=== PATIENT | male | born 1995 | race Caucasian/White ===

== ENCOUNTER 2022-02-23 19:54 | Emergency (ER) | payer SELFPAY | END 2022-02-23 20:58 | disposition left against medical advice (07) | LOC: HO.ED 20:54 | PROVIDERS: Emergency Provider Emergency Medicine | DX: S61.219A Laceration without foreign body of unspecified finger without damage to nail, initial encounter (principal); X58.XXXA Exposure to other specified factors, initial encounter; Y93.9 Activity, unspecified; Y92.9 Unspecified place or not applicable; Y99.9 Unspecified external cause status ==

== ENCOUNTER 2023-10-21 19:19 | Inpatient (IN) | payer MEDICAID, SELFPAY ==
--- NOTE | 2023-10-21 20:07 | ED.PSYCH ---
HPI - Psych General Stated Complaint: crisis eval Time Seen by Provider: 10/21/23 19:57 Source: patient Mode of arrival: ambulatory Limitations: no limitations History of Present Illness HPI Narrative: Patient comes to the emergency room brought by ?one of his many mom's . When I asked the patient what is the reason that he came to the emergency room, patient is willing to answer question, but he answers something completely different, speaking with pressured speech and in tangents. Seems that patient is not on any medication. Patient states that he has had many medications in the past but nothing work so he has not on any meds. Unclear for how long. Related Data Allergies Allergy/AdvReac Type Severity Reaction Status Date / Time Unable to Assess Allergy Verified 10/21/23 20:05 Review of Systems Review of Systems: Yes Unobtainable due to mental condition (Speaking in tangents, pressured speech, not answering questions appropriate) [facility] Past Medical History Medical History (Updated 10/21/23 @ 20:12 by Davida Hubbard MD) Bipolar disorder Physical Exam Const: Other: Appearance: Alert. No acute distress. Eyes: Pupils equal, round and reactive to light. ENT: Pharynx normal. Neck: Normal inspection. Neck supple. No lymph nodes noted. No crepitus CVS: Normal heart rate and rhythm. Pulses normal. Normal S1 and S2 Respiratory: No respiratory distress. Breath sounds normal. No Wheezing. No rales Abdomen: Soft and nontender. No rigidity. No distention. Skin: Skin warm and dry. Normal skin color. Normal skin turgor. Extremities: No lower extremity edema. No Lacerations. No Rash Neuro: moving all extremities. No slurred speech. CN 2 through 12 grossly intact Psych: calm, cooperative, hyperverbal, speaking in tangents Course Course Course Narrative: -all of patient's labs pending -care team consult pending -patient is manic, hyperverbal, however patient is redirectable. Patient offered p.o. Benadryl, Haldol and lorazepam. At this time, IM medications not indicated as he is, cooperative. Critical Care Time Critical Care Time Critical Care Time: Yes Total Critical Care Time: 30 Attestation: I have personally provided critical care time. Time includes review of lab data, radiology results, discussion with consultants, and monitoring for potential decompensation. Intervention performed as documented. Discharge Plan Discharge Clinical Impression: Bipolar disorder, manic Patient Disposition: Still a Patient
[2023-10-21 20:11] VITALS: BP 146/84; PULSE 83; RESP 16; TEMP 36.6; O2SAT 98; BMI 31.5
[2023-10-21] MEDS: diphenhydrAMINE HCL 25 MG CAPSULE 50 MG PO (20:41)
[2023-10-21 20:44] LABS: MANUAL DIFF FLAG NO
[2023-10-21 20:48] LABS: Basophils Percent Auto 0.2 % (0-2); Eosinophils Percent Auto 0.2 % (0-4); Hematocrit 45.1 % (42.0-52.0); Hemoglobin 15.9 g/dl (14.0-18.0); Imm Gran Abs Auto 0.01 X10*3/uL (0.00-0.03); Imm Gran Pct Auto 0.2 % (0.0-0.4); Lymphocytes Absolute Auto 1.2 X10*3/uL (1.2-4.9); Lymphocytes Percent Auto 25.6 % (20-40); Mean Corpuscular HGB Conc 35.3 g/dl (31.0-36.0); Mean Corpuscular Hemoglobin 31.2 pg (27.0-33.0); Mean Corpuscular Volume 88.6 fL (80.0-98.0); Mean Platelet Volume 10.1 fL (9.4-12.4); Monocytes Absolute Auto 0.7 X10*3/uL (0.1-1.2); Monocytes Percent Auto 14.7 % (2-11); Neutrophils Absolute Auto 2.9 x10*3/uL (2.0-8.3); Neutrophils Percent Auto 59.1 % (45-73); Platelet Count 208 X10*3/uL (160-400); Red Blood Count 5.09 X10*6/uL (4.60-5.80); Red Cell Distribution Width 12.1 % (11.0-16.0); White Blood Count 4.8 X10*3/uL (4.8-10.8)
--- NOTE | 2023-10-21 21:26 | PC.NURSE ---
mother called in, [facility] in [place]. new number [phone]
[2023-10-21 21:36] LABS: Alanine Aminotransferase 22 U/L (0-40); Albumin Level 5.1 g/dL (3.5-5.0); Alkaline Phosphatase 76 U/L (39-117); Anion Gap 17 (12-20); Aspartate Amino Transferase 21 U/L (5-37); Bilirubin Direct 0.3 mg/dL (0.0-0.5); Bilirubin Total 0.8 mg/dL (0.0-1.0); Blood Urea Nitrogen 10 mg/dL (9-16); Calcium 9.9 mg/dL (8.4-10.2); Carbon Dioxide 24 mmol/L (22-29); Chloride 100 mmol/L (96-108); Creatinine Clr Calc Pharmacy 174.4; Estimated Glomerular Filt Rate > 60; Ethanol < 10 mg/dL; Glucose Random 121 mg/dL (60-115); Potassium 4.4 mmol/L (3.3-5.1); Sodium 137 mmol/L (135-145); Total Protein 8.3 g/dL (6.5-8.0)
--- NOTE | 2023-10-21 21:46 | MHC.CARE ---
Mother called to speak to CARE team while pt was in . She reports pt took 10 packs of emergen-C yesterday in what she believes was a suicide attempt. She shared pt has an aunt that completed suicide, cousin who overdosed, maternal gma who suffers from schizophrenia and she (mom) has depression. Pt is currently staying with her friend as he recently broke up with girlfriend. Mother is in [place]. She asked to be called at [phone] marquita assessment underway
--- OUTSIDE RECORDS SUMMARY | 2023-10-21 21:54 | XMS_ITS | Continuity of Care Document ---
Author Name Unknown Organization [facility] Address [address] [place] [address]- Care Team Providers Care Patent Agent Name Role Phone Not on Staff, PCP Primary Care Physician Unavail able Encounter [facility] Date(s): 08/26/23 - 09/25/23 [facility] [address] [place] [address]- Attending Physician: Marcia Sy Admitting Physician: Marcia Sy Referring Physician: Marcia Sy Allergies, Adverse Reactions, Alerts No Known Allergies Immunizations Given and Recorded Vaccine Date Status Refusal Reason tetanus/diphtheria/pertussis, acel(Tdap) 02/23/22 Given Problem List Condition Confirmation Course Effective Dates Status Health St atus Informant Cocaine use Confirmed Active Obese class I Confirmed Active Social History Social History Type Response Smoking Status Smoker, current stat us unknown entered on: 10/27/14 Sex Patient Care team information Care Team Personnel Name: Not on Staff, PCP Position: S Physician (General Medicine) Member Role: PCP Care Team Related Persons Name: TAWNYA JONES Name: ELIOT CAMPBELL II Address: home [address] [place] [id number] Name: GENOVEVA CAMPBELL Address: [place] [address] Name: ZE WILLS
--- OUTSIDE RECORDS SUMMARY | 2023-10-21 21:54 | XMS_ITS | Continuity of Care Document ---
Author Name Unknown Organization [facility] Address [address] [place] [address]- Care Team Providers Care Intranet Support Name Role Phone Not on Staff, PCP Primary Care Physician Unavail able Encounter [facility] Date(s): 08/23/23 - 08/24/[address] [address]- Discharge Disposition: A-D/C Home Attending Physician: Addison Parker MD Admitting Physician: Addison Parker MD Referring Physician: Not on Staff, Referring MD Allergies, Adverse Reactions, Alerts No Known Allergies Immunizations Given and Recorded Vaccine Date Status Refusal Reason tetanus/diphtheria/pertussis, acel(Tdap) 02/23/22 Given Problem List Condition Confirmation Course Effective Dates Status Health St atus Informant Cocaine use Confirmed Active Obese class I Confirmed Active Vital Signs Most recent to oldest [Reference Range]: 1 2 3 Height 196 cm (08/23/23 6:30 PM) 196 cm (08/23/23 4:34 PM) 196 cm (08/23/23 4:04 PM) Weight 128 kg (08/23/23 6:30 PM) 128 kg (08/23/23 4:34 PM) 128 kg (08/23/23 4:04 PM) Oxygen Saturation [94-100 %] 100 % (08/23/23 10:37 PM) 99 % (08/23/23 6:30 PM) Pulse Rate [55-90 bpm] 69 bpm (08/23/23 10:37 PM) 73 bpm (08/23/23 6:30 PM) 93 bpm *H* (08/23/23 4:04 PM) Body Mass Index [18.5-24.99 kg/m2] 33.32 kg/m2 *>HHI* (08/23/23 6:30 PM) 33.32 kg/m2 *>HHI* (08/23/23 4:04 PM) Blood Pressure [90-138/55-84 mm Hg] 156/85mm Hg *H* (08/23/23 10:37 PM) 124/83mm Hg (08/23/23 6:30 PM) 143/73mm Hg *H* (08/23/23 4:04 PM) Respiratory Rate [16-30 br/min] 19 br/min (08/23/23 6:30 PM) 19 br/min (08/23/23 4:04 PM) Temperature [96.8-100.4 DegF] 98.2 DegF (08/23/23 10:37 PM) 98 DegF (08/23/23 6:30 PM) 97 DegF (08/23/23 4:04 PM) Mode of Delivery (Oxygen) Room air (08/23/23 6:30 PM) Room air (08/23/23 4:04 PM) Blood pressure sites Arm, left (08/23/23 10:37 PM) Arm, right (08/23/23 6:30 PM) Arm, right (08/23/23 4:04 PM) Temperature Route Oral (08/23/23 10:37 PM) Oral (08/23/23 6:30 PM) Oral (08/23/23 4:04 PM) Social History Social History Type Response Smoking Status Smoker, current stat us unknown entered on: 10/27/14 Sex Note * Addison Parker MD: PERFORM Event Display: Patient Education Leaflets Authored Date: [id number] [facility] - If you need a Doctor or Clinic ?? 34 If You Need a Doctor or Clinic ?? Call [facility] PCP Assignment Line to help you find a doctor:?? [phone] ?? Clinics in [place], [place] For a full list of clinics:? [email or web address] ?? [facility]? [address] [phone] [facility]?[address]?[phone] [facility]?[address][phone] [facility]?[address][phone] [facility]?[address] [phone] [facility]?[address][phone] [facility]?[address][phone] [facility]?[address] [phone] [facility]? [address][phone] [facility]?[address][phone] [facility]?[address][phone] [facility]?[address][phone] [facility]?[address][phone] [facility]? [address][phone] [facility]?[address][phone] ? * Addison Parker MD: PERFORM Event Display: Patient Education Leaflets Authored Date: [id number] Hernia (Adult) ?? [id number] Hernia (Adult) A hernia can happen when there is a weakness or defect in the wall of the abdomen or groin.??Intestines or nearby tissues may move from their usual location and push through the weakness in the wall.This can cause a bulge (hernia) you may see or feel. Causes and risk factors?? A hernia may be present at . Or it may be caused by the wear and tear of daily living. Certainthings can make a hernia more likely. These can include: ??? Heavy lifting ??? Straining, whether from lifting, movement, or constipation ??? Chronic cough ??? Injury to the abdominal wall ??? Excessweight ? Past surgery ??? Older age ??? Family history of hernia ?? Symptoms Symptoms of a hernia may come on suddenly. Or they may appear slowly over time. Some common symptoms include: ??? Bulge in the groin area, around the navel, or in the scrotum. The bulge may get bigger when you stand and go away when you lie down. ??? Pain or pressure around the bulge ??? Pain during activities such as lifting, coughing, or sneezing ??? A feeling of weakness or pressure in the groi n ??? Pain or swelling in the scrotum ?? Types of hernias There are different types of hernia. The type you have depends on where it is: ??? Inguinal. This type is in the groin or scrotum. It's more common in men. But women can also getthis hernia. ??? Femoral. This type is in the groin, upper thigh, or labia. It's more common in women. ??? Ventral. This type is in the abdominal wall. ??? Umbilical. This type occurs around the bellybutton (navel). ??? Incisional. This type occurs at the site of a past surgery. The condition of the hernia can help determine how quickly it needs to be treated. ??? Reducible. It goes back in by itself, or it can be pushed back in. ??? Irreducible. It can???t be pushed back in. ??? Incarcerated or strangulated. The intestine is trapped (incarcerated). If this happens, you won???t be able to push the bulge back in. If the incarcerated hernia isn???t treated, it may become strangulated. This means the area loses blood supply and the tissue may .?? This requires emergency surgery. You need treatment right away. In most cases, a hernia will not heal on its own. You may need surgery to repair the defect in the abdominal wall or groin. You???ll be told more about surgery, if needed. If your symptoms are not severe, treatment may sometimes be delayed. In such cases, you will need regular follow-up visits with the provider. You???ll be asked to keep track of your symptoms and to watch for signs of more serious problems. You may also be given guidelines similar to the home care instructions below. ?? Home care To help keep a hernia from getting worse, you may be advised to: ??? Not do any heavy lifting or straining as directed. ??? Take steps to prevent constipation. This includes eating more fiber and drinking more water. This may help reduce straining that can occur when having a bowel movement. Reducing straining may help keep your symptoms from getting worse. ??? Stay at a healthy weight or lose extra weight. This can help reduce strain on abdominal muscles and tissues. ??? Stop smoking. This canhelp prevent coughing that may also strain abdominal muscles and tissues. ?? Follow-up care Follow up with your healthcare provider, or as directed.??If you had imaging tests, they will be reviewed a doctor. You will be told the results and any new findings that may affect your care. ?? When to seek medical advice Call your healthcare provider right away if any of these occur: ??? Hernia hardens, swells, or grows larger ??? Hernia can no longer be pushed back in ??? Pain moves to the lower right abdomen (just below the waistline), or spreads to the back ??? You have new symptoms ?? Call 911 Call 911??if any of these occur: ??? Severe pain, redness, or tenderness in the area near the hernia ??? Pain gets worse quickly and doesn???t get better ??? Inability to have a bowel movement or pass gas ??? Fever of 100.4??F (38??C) or higher, or as directed by your healthcare provider ?? Last Reviewed Date: 2021 ?? [id number] [employer]. All rights reserved. This information is not intended as a substitute for professional medical care. Always follow your healthcare professional's instructions. ?? Patient Care team information Care Team Personnel Name: Not on Staff, PCP Position: [facility] Physician (General Medicine) Member Role: PCP Name: Addison Parker MD Position: [facility] ED Medicine MD Member Role: ED Attending Physician Address: Address: [address] [place] [address] [place] [address]- Care Team Related Persons Name: TAWNYA JONES Name: ELIOT CAMPBELL II Address: [address] [address] Name: GENOVEVA CAMPBELL Address: [place] [address] Name: ZE WILLS
--- OUTSIDE RECORDS SUMMARY | 2023-10-21 21:54 | XMS_ITS | Continuity of Care Document ---
Author Name Unknown Organization [facility] Address [address] [place] [address]- Care Team Providers Care Road Mender Name Role Phone Not on Staff, PCP Primary Care Physician Unavail able Encounter [facility] Date(s): 08/25/23 - 09/25/23 [facility] [address] [place] [address]- Attending Physician: Lyle Larson MD Referring Physician: Not on Staff, Referring [...] JONES Name: ELIOT CAMPBELL II Address: home [address] [place] [address] Name: GENOVEVA CAMPBELL Address: [place] [address] Name: ZE WILLS
--- OUTSIDE RECORDS SUMMARY | 2023-10-21 21:54 | XMS_ITS | Continuity of Care Document ---
Author Name Unknown Organization [facility] Address [address] [place] [address] [address] [place] [address]- Care Team Providers Care Puppy Walker Name Role Phone Not on Staff, PCP Primary Care Physician Unavail able Encounter [facility] Date(s): 08/24/23 - 09/23/[address] [place] [address]- Attending Physician: Marcia Sy Admitting Physician: Marcia Sy Referring Physician: AdmMarcia zhang Allergies, Adverse Reactions, Alerts No Known Allergies [...] Personnel Name: Not on Staff, PCP Position: [facility] Physician (General Medicine) Member Role: PCP Care Team Related Persons Name: TAWNYA JONES Name: ELIOT CAMPBELL II Address: home [address] [place] [address] Name: GENOVEVA CAMPBELL Address: [place] [address] Name: ZE WILLS
--- OUTSIDE RECORDS SUMMARY | 2023-10-21 21:54 | XMS_ITS | Continuity of Care Document ---
Author Name Unknown Organization [facility] Address [address] [place] [address]- Care Team Providers Care Qm Nurse Name Role Phone Not on Staff, PCP Primary Care Physician Unavail able Encounter [facility] Date(s): 08/25/23 - 09/24/23 [facility] [address] [place] [address]- Allergies, Adverse Reactions, Alerts No Known Allergies [...] Name: ELIOT CAMPBELL II Address: home [address] [place] [address] Name: GENOVEVA CAMPBELL Address: [place] [address] Name: ZE WILLS
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
--- OUTSIDE RECORDS SUMMARY | 2023-10-21 21:54 | XMS_ITS | Continuity of Care Document ---
Author Name Unknown Organization [facility] Address [address] [place], [place] [address]i ve [address] [place] [address]- Care Team Providers Care Barrel Scraper Name Role Phone Not on Staff, PCP Primary Care Physician Unavail able [facility]counter [facility] Date(s): 08/24/23 - 09/23/23 [facility] [address] [place] [address]- Allergies, Adverse Reactions, Alerts No Known Allergies [...] JONES Name: ELIOT CAMPBELL II Address: home [address] [place] [address] Name: GENOVEVA CAMPBELL Address: [place] [address] Name: ZE WILLS
[2023-10-21 22:24] LABS: Appearance Urine Clear; Color Urine Dark Yellow; Glucose Urine UA Negative (Negative); Leukocyte Esterase Urine Negative (Negative); Nitrite Urine Negative (Negative); PH 5.5 (5.0-9.0); Specific Gravity - Urine 1.025 (1.005-1.025); Urine Blood Negative (Negative); Urine Ketones 15 mg/dL (Negative); Urine Protein Trace mg/dL (Neg-Trace)
[2023-10-21 22:27] LABS: Bacteria Urine None Seen (None Seen); Hyaline Casts Urine 0-2 /LPF (0-2); RBC Urine 0-2 /HPF (0-2); Squamous Epithelial Cell Urine 0-2 /HPF (0-2); WBC Urine 0-5 /HPF (0-5)
[2023-10-21 22:32] LABS: Amphetamine Screen Urine Not Detected (Not Detect); Barbiturates, Urine Not Detected (Not Detect); Benzodiazepines Screen Urine Not Detected (Not Detect); Cannabinoid Screen Urine POSITIVE (Not Detect); Cocaine Screen Urine Not Detected (Not Detect); Fentanyl, urine Not Detected (Not Detect); Opiate Screen Urine Not Detected (Not Detect); Phencyclidine Screen Urine Not Detected (Not Detect)
[2023-10-22 09:03] LABS: COVID-19 Test Negative (Negative); IDNOW Serial# 152EDE1D
[2023-10-22] MEDS: Nicotine 14 MG PATCH.TD24 TRANSDERMA (11:17)
[2023-10-22] MEDS: LORazepam 1 MG TABLET 2 MG PO (12:03)
--- NOTE | 2023-10-22 12:06 | PC.NURSE ---
Blane reporting increased anxiety and stated he usually smokes almost an ounce a week of marijuana. He was pacing and having a difficult time sitting still. MD notified and Lorazepam 2mg PO given. Effect pending.
--- NOTE | 2023-10-22 13:23 | PM.PSYCN ---
History of Present Illness Date of Service: 10/22/2023 Chief Complaint: crisis eval Reason for Consult: shady Discussed with referring provider: Yes Sources of Information: patient interviewed, chart reviewed and crisis/core team assessment reviewed HPI Narrative: Mr. Rosen is a 28 year-old male with hx of Bipolar Disorder who was brought by family member. In the ED, pt presents as hyperverbal. He presents with expansive mood. He tells this sign writer letterer or painter that he has learned everything, pretty much there is nothing I can't do. When this sign writer letterer or painter asked if he can performed surgery, he states well.. pretty much, I can definitely try. Pt reports he was laid off of work about one month ago. 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 He reports he has not slept in several days. He reports he has been investing his time working several hours day and night to bring his business up. He reports he had been on lithium several years ago which he says it helped but he did not think he need it, so stopped. He reports having racing thoughts, and is worried that medications will affect his creativity and he says I like how I feel. He shows this sign writer letterer or painter notes on paper about his projects and his work (mostly a piece of paper with bubble letters that says limitless ) He denies SI/HI. No overt VH/AH. 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 Substance History: cannabis daily Diagnostics Vital Signs (24Hr): Vital Signs - 24 hr 10/21/23 20:11 Temperature 97.9 F Pulse Rate 83 Respiratory Rate 16 Blood Pressure 146/84 H Pulse Oximetry 98 Oxygen Delivery Method Room Air BMI result Body Mass Index 31.5 Labs 10/21/23 20:30 10/21/23 20:30 Labs: Laboratory Results - last 48 hr 10/21/23 10/21/23 10/22/23 20:30 22:15 08:38 WBC 4.8 RBC 5.09 Hgb 15.9 Hct 45.1 MCV 88.6 MCH 31.2 MCHC 35.3 RDW 12.1 Plt Count 208 MPV 10.1 Immature Gran % (Auto) 0.2 Neut % (Auto) 59.1 Lymph % (Auto) 25.6 [place] % (Auto) 14.7 H Eos % (Auto) 0.2 Baso % (Auto) 0.2 Lymph # (Auto) 1.2 [place] # (Auto) 0.7 Eos # (Auto) 0.0 Baso # (Auto) 0.0 Abs Immat Gran (auto) 0.01 Absolute Neuts (auto) 2.9 Absolute Nucleated RBC 0.000 Nucleated RBC % (auto) 0.0 Sodium 137 Potassium 4.4 Chloride 100 Carbon Dioxide 24 Anion Gap 17 BUN 10 Creatinine 0.86 Estim Creat Clear Calc 174.4 Estimated GFR > 60 Random Glucose 121 H Calcium 9.9 Total Bilirubin 0.8 Direct Bilirubin 0.3 AST 21 ALT 22 Alkaline Phosphatase 76 Total Protein 8.3 H Albumin 5.1 H Urine Color Dark Yellow Urine Appearance Clear Urine pH 5.5 Ur Specific [place] 1.025 Urine Protein Trace Urine Glucose (UA) Negative Urine Ketones 15 Urine Blood Negative Urine Nitrite Negative Ur Leukocyte Esterase Negative Urine RBC 0-2 Urine WBC 0-5 Ur Squamous Epith Cells 0-2 Urine Bacteria None Seen Hyaline Casts 0-2 Urine Opiates Screen Not Detected Urine Fentanyl Screen Not Detected Ur Barbiturates Screen Not Detected Ur Phencyclidine Scrn Not Detected Ur Amphetamines Screen Not Detected U Benzodiazepines Scrn Not Detected Urine Cocaine Screen Not Detected U Marijuana (THC) Screen POSITIVE H Ethyl Alcohol < 10 COVID-19 (YADI) Negative COVID-19 Clin Com See Note Mental Status Exam Mental Status Exam Narrative: Appearance: wearing hospital gown, fair hygiene, in NAD Behavior: cooperative Psychomotor: no agitation or retardation noted Speech: hyperverbal, not pressured, spontaneous TP: flight of ideas TC: wanting to build his business, become a film examiner, knowing pretty much everything mood: good Affect: expansive SI: denies HI: denies VH/AH: no overt Delusions: grandiose delusions Insight/judgment: impaired x 2. Memory/cog: alert, oriented x3. Medications Allergies Allergies Allergy/AdvReac Type Severity Reaction Status Date / Time Unable to Assess Allergy Verified 10/21/23 20:05 Assessment & Plan Assessment & Plan (1) Bipolar disorder, manic: Status: Acute Code(s): F31.10 - Bipolar disorder, current episode manic without psychotic features, unspecified Plan Mr. Rosen is a 28 year-old male with hx of Bipolar Disorder type 1 who presented with s/s of shady including decrease need for sleep, grandiose ideas, racing thoughts, increase energy. Utox was positive for cannabinoids. We discussed risks, benefits and alternative treatment options. Pt agreed to restart lithium, which he reports was helpful in the past. he also agreed to restart risperidone as he has been on it with good effect. PLAN 1. Pt need inpt level of care for stabilization, containment 2. Start lithium 600mg po BID 3. Start Risperidone 1mg po BID. Total time managing care of this patient today ____ minutes.
[2023-10-22 16:49] VITALS: RESP 18
[2023-10-22 17:05] VITALS: BP 122/76; PULSE 88; RESP 16; TEMP 37; O2SAT 97
[2023-10-22] MEDS: LORazepam 1 MG TABLET PO (17:55)
[2023-10-22 18:00] VITALS: BMI 30.4
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
[2023-10-22] MEDS: risperiDONE 1 MG TABLET PO (20:32)
[2023-10-22] MEDS: Lithium Carbonate 300 MG CAPSULE 600 MG PO (20:32)
[2023-10-23 07:40] VITALS: BP 128/75; PULSE 67; RESP 16; TEMP 36.6; O2SAT 98
[2023-10-23 07:42] LABS: Alanine Aminotransferase 18 U/L (0-40); Albumin Level 4.4 g/dL (3.5-5.0); Alkaline Phosphatase 65 U/L (39-117); Anion Gap 11 (12-20); Aspartate Amino Transferase 15 U/L (5-37); Bilirubin Total 0.6 mg/dL (0.0-1.0); Blood Urea Nitrogen 10 mg/dL (9-16); Calcium 9.2 mg/dL (8.4-10.2); Carbon Dioxide 27 mmol/L (22-29); Chloride 104 mmol/L (96-108); Cholesterol 168 mg/dL (<200); Creatinine Clr Calc Pharmacy 170.7; Estimated Glomerular Filt Rate > 60; Glucose Fasting 98 mg/dL (60-99); HDL Cholesterol 32 mg/dL (>40); LDL Cholesterol Calculated 122 mg/dL (<100); Potassium 4.4 mmol/L (3.3-5.1); Sodium 138 mmol/L (135-145); Total Protein 7.3 g/dL (6.5-8.0); Triglycerides 70 mg/dL (<150)
[2023-10-23] MEDS: Lithium Carbonate 300 MG CAPSULE 600 MG PO ×2 (08:30→22:25)
[2023-10-23] MEDS: Nicotine Polacrilex 2 MG GUM BUCCAL ×4 (10:57→23:42)
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
[2023-10-23 22:00] VITALS: BP 141/84; PULSE 98; RESP 14; TEMP 36.5; O2SAT 99
[2023-10-23] MEDS: risperiDONE 1 MG TABLET PO (22:25)
[2023-10-24] MEDS: LORazepam 1 MG TABLET PO (00:57)
[2023-10-24] MEDS: Nicotine Polacrilex 2 MG GUM BUCCAL ×6 (01:51→21:58)
[2023-10-24 08:05] VITALS: BP 141/67; PULSE 66; RESP 16; TEMP 36.4; O2SAT 99
--- NOTE | 2023-10-24 08:22 | HO.PSYCHPN ---
Subjective Subjective Date of Service: 10/24/23 Reason For Visit: crisis Subjective Notes: Conditional Voluntary Interim History: Patient was seen and discussed in rounds today. Records and plans were reviewed. He has settled in and has been compliant with his medications which he had stopped. A lithium order has been put in place for 10/26. No complaints or side effects. He is visible. Attending groups. Grandiose and expansive with magical thinking reported. Eating adequately. No changes were made today Review of Systems Review of Systems Yes all other systems are reviewed and are negative Mental Status Exam Mental Status Exam Patient Appearance: Well Grooomed Patient Orientation: Person, Place, Time and Situation Level of Consciousness: Alert Patient Behavior: Appropriate Mood Description: Expansive Affect Description: Cheerful Patient Cognition Impaired: No Ability to Follow Directions: Good Speech Pattern: Clear and Rapid Memory Description: Intact Hallucinations: None Delusions: Grandiose Thought Process: Racing Thought Content: positive for Circumstantial Depressive Symptoms: Insomnia Judgement: Fair Diagnostics Vital Signs (24Hr): Vital Signs - 24 hr 10/23/23 22:00 Temperature 97.7 F Pulse Rate 98 Respiratory Rate 14 Blood Pressure 141/84 H Pulse Oximetry 99 Oxygen Delivery Method Room Air BMI result Body Mass Index 30.4 Labs 10/21/23 20:30 10/23/23 07:10 Labs: Laboratory Results - last 48 hr 10/22/23 10/23/23 08:38 07:10 Sodium 138 Potassium 4.4 Chloride 104 Carbon Dioxide 27 Anion Gap 11 L BUN 10 Creatinine 0.91 Estim Creat Clear Calc 170.7 Estimated GFR > 60 Fasting Glucose 98 Calcium 9.2 D Total Bilirubin 0.6 AST 15 ALT 18 Alkaline Phosphatase 65 Total Protein 7.3 Albumin 4.4 Triglycerides 70 Cholesterol 168 LDL Cholesterol, Calc 122 H HDL Cholesterol 32 L COVID-19 (YADI) Negative COVID-19 Clin Com See Note Medications Medications Current Medications Acetaminophen (Acetaminophen 325 Mg Tablet) 650 mg PO Q6H PRN PRN Reason: Headache/Pain Mild Scale (1-3) Al Hydroxide/Mg Hydroxide (Magnesium Hydrox/Alum Hydrox 30 Ml Oral.Susp) 30 ml PO Q6H PRN PRN Reason: Heartburn/Nausea [place] Carbonate ([place] Carbonate 300 Mg Capsule) 600 mg PO BID JAYSHREE Last Admin: 10/23/23 22:25 Dose: 600 mg Lorazepam (Lorazepam 1 Mg Tablet) 1 mg PO Q6H PRN PRN Reason: anxiety/sleep Last Admin: 10/24/23 00:57 Dose: 1 mg Magnesium Hydroxide (Milk Of Magnesia 30 Ml Oral.Susp) 30 ml PO DAILY PRN PRN Reason: Constipation Nicotine Polacrilex (Nicotine Polacrilex 2 Mg Gum) 2 mg BUCCAL Q2H PRN PRN Reason: Nicotine Cravings Last Admin: 10/24/23 01:51 Dose: 2 mg Olanzapine (Olanzapine Odt 10 Mg Tab.Rapdis) 10 mg TRANSLINGU Q6H PRN PRN Reason: agitation Risperidone (Risperidone 1 Mg Tablet) 1 mg PO BID JAYSHREE Last Admin: 10/23/23 22:25 Dose: 1 mg Allergies Allergies Allergy/AdvReac Type Severity Reaction Status Date / Time mite-Dermatophagoides Allergy Rash Verified 10/22/23 17:24 cecilio hanson [dust mite - [place]] Assessment & Plan Assessment & Plan (1) Bipolar disorder, manic: Status: Acute Code(s): F31.10 - Bipolar disorder, current episode manic without psychotic features, unspecified Assessment and Plan: Previously effective regimen of lithium and risperdal started. Plan 10/24: Continue current plans and regimen Reason for continued inpatient stay Substantial Risk for: med/psych decompensation Time Spent With Patient Time: Total time managing care of this patient today ____ minutes.
[2023-10-24] MEDS: risperiDONE 1 MG TABLET PO ×2 (08:41→23:00)
[2023-10-24] MEDS: Lithium Carbonate 300 MG CAPSULE 600 MG PO ×2 (08:41→23:00)
[2023-10-24 21:10] VITALS: BP 135/81; PULSE 84; RESP 18; TEMP 37.1; O2SAT 98
[2023-10-25] MEDS: Nicotine Polacrilex 2 MG GUM BUCCAL ×6 (00:18→23:07)
[2023-10-25] MEDS: LORazepam 1 MG TABLET PO ×2 (01:10→22:18)
[2023-10-25] MEDS: Lithium Carbonate 300 MG CAPSULE 600 MG PO ×2 (07:42→22:18)
[2023-10-25] MEDS: risperiDONE 1 MG TABLET PO ×3 (07:42→22:18)
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
[2023-10-25] MEDS: Nicotine 21 MG PATCH.TD24 TRANSDERMA (12:29)
--- NOTE | 2023-10-25 14:25 | MHC.CLN ---
NUTRITION CONSULT FOR 30# WEIGHT LOSS. VISITED WITH PATIENT IN QUIET ROOM. STATED THAT HE HAS LOST WEIGHT SINCE August AND THAT HAS BEEN TRYING TO EAT WELL AND EXERCISE. STATED THAT EATING WELL HERE. NO ADDITIONAL NUTRITION INTERVENTIONS AT THIS TIME.
--- NOTE | 2023-10-25 15:59 | P.PNPSI_ITS ---
Subjective Subjective Date of Service: 10/25/23 Reason For Visit: crisis Interim History: pressured, tangential, pleasant. states he will not change his medications. does allow a risperidone 1 mg PRN to be added for periods of agitation. per staff, signed 3-day notice today. paranoid, grandiose over weekend. some refusing of medication little sleep. reportedly making vague threats against peers. 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 Memory/cog: alert, oriented x3. Diagnostics Vital Signs (24Hr): Vital Signs - 24 hr 10/24/23 21:10 Temperature 98.8 F Pulse Rate 84 Respiratory Rate 18 Blood Pressure 135/81 Pulse Oximetry 98 Oxygen Delivery Method Room Air BMI result Body Mass Index 30.4 Labs 10/21/23 20:30 10/23/23 07:10 Medications Medications Current Medications Acetaminophen (Acetaminophen 325 Mg Tablet) 650 mg PO Q6H PRN PRN Reason: Headache/Pain Mild Scale (1-3) Al Hydroxide/Mg Hydroxide (Magnesium Hydrox/Alum Hydrox 30 Ml Oral.Susp) 30 ml PO Q6H PRN PRN Reason: Heartburn/Nausea [place] Carbonate ([place] Carbonate 300 Mg Capsule) 600 mg PO BID [facility] Last Admin: 10/25/23 07:42 Dose: 600 mg Lorazepam (Lorazepam 1 Mg Tablet) 1 mg PO Q6H PRN PRN Reason: anxiety/sleep Last Admin: 10/25/23 01:10 Dose: 1 mg Magnesium Hydroxide (Milk Of Magnesia 30 Ml Oral.Susp) 30 ml PO DAILY PRN PRN Reason: Constipation Nicotine (Nicotine 21 Mg Patch.Td24) 21 mg TRANSDERMA DAILY [facility] Last Admin: 10/25/23 12:29 Dose: 21 mg Nicotine Polacrilex (Nicotine Polacrilex 2 Mg Gum) 2 mg BUCCAL Q2H PRN PRN Reason: Nicotine Cravings Last Admin: 10/25/23 13:16 Dose: 2 mg Olanzapine (Olanzapine Odt 10 Mg Tab.Rapdis) 10 mg TRANSLINGU Q6H PRN PRN Reason: agitation Risperidone (Risperidone 1 Mg Tablet) 1 mg PO BID JAYSHREE Last Admin: 10/25/23 07:42 Dose: 1 mg Risperidone (Risperidone 1 Mg Tablet) 1 mg PO DAILY PRN PRN Reason: agitation Allergies Allergies Allergy/AdvReac Type Severity Reaction Status Date / Time mite-Dermatophagoides Allergy Rash Verified 10/22/23 17:24 cecilio hanson [dust mite - [place]] Assessment & Plan Assessment & Plan (1) Bipolar disorder, manic: Status: Acute Code(s): F31.10 - Bipolar disorder, current episode manic without psychotic features, unspecified Assessment and Plan: Previously effective regimen of lithium and risperdal started. Plan 10/24: Continue current plans and regimen 10/25: pt refusing to increase scheduled regimen. remains manic. submitted 3- day notice. continue current mgmt. Reason for continued inpatient stay Substantial Risk for: inability to function Time Spent With Patient Time: Total time managing care of this patient today __35__ minutes.
[2023-10-25 18:00] VITALS: BP 122/72; PULSE 84; RESP 17; TEMP 36.6; O2SAT 98
[2023-10-26] MEDS: OLANZapine ODT 10 MG TAB.RAPDIS TRANSLINGU ×2 (03:17→21:52)
[2023-10-26] MEDS: Nicotine Polacrilex 2 MG GUM BUCCAL ×5 (03:57→21:19)
[2023-10-26 08:13] VITALS: BP 124/54; PULSE 58; RESP 14; TEMP 36.3; O2SAT 99
[2023-10-26] MEDS: Lithium Carbonate 300 MG CAPSULE 600 MG PO ×2 (08:35→20:08)
[2023-10-26] MEDS: risperiDONE 1 MG TABLET PO ×3 (08:35→20:09)
[2023-10-26] MEDS: Nicotine 21 MG PATCH.TD24 TRANSDERMA (08:36)
[2023-10-26 08:39] LABS: Lithium 0.48 mmol/L (0.60-1.20)
--- NOTE | 2023-10-26 13:22 | P.PNPSI_ITS ---
Subjective Subjective Date of Service: 10/26/23 Reason For Visit: crisis Interim History: calm, cooperative. hyperverbal, perhaps less pressured and slightly less tangential than yesterday. labile, crying about having spoken with his daughter on the phone last night. was feeling afraid to go to sleep last night, paranoid someone is trying to get him. remains euphoric, laudatory. planning on discharging at expiry of 3-day notice on . declining any increase in his medications. per staff, 3-day up 10/28. outburst yesterday morning. labile, agitated. anx 06/22. grandiose, intrusive. ativan and zyprexa PRNs. slept about 6 hours. Mental Status Exam Mental Status Exam Narrative: Appearance: wearing street clothes, fair hygiene, in NAD Behavior: cooperative Psychomotor: no agitation or retardation noted Speech: slightly less pressured TP: tangential TC: paranoid delusions mood: euphoric Affect: expansive SI: none expressed HI: none expressed VH/AH: none expressed Delusions: grandiose delusions Insight/judgment: impaired x 2. Memory/cog: alert, oriented x3. Diagnostics Vital Signs (24Hr): Vital Signs - 24 hr 10/25/23 18:00 10/26/23 08:13 Temperature 97.8 F 97.3 F Pulse Rate 84 58 Respiratory Rate 17 14 Blood Pressure 122/72 124/54 L Pulse Oximetry 98 99 Oxygen Delivery Method Room Air Room Air BMI result Body Mass Index 30.4 Labs 10/21/23 20:30 10/23/23 07:10 Labs: Laboratory Results - last 48 hr 10/26/23 08:13 [place] 0.48 L Medications Medications Current Medications Acetaminophen (Acetaminophen 325 Mg Tablet) 650 mg PO Q6H PRN PRN Reason: Headache/Pain Mild Scale (1-3) Al Hydroxide/Mg Hydroxide (Magnesium Hydrox/Alum Hydrox 30 Ml Oral.Susp) 30 ml PO Q6H PRN PRN Reason: Heartburn/Nausea [place] Carbonate ([place] Carbonate 300 Mg Capsule) 600 mg PO BID JAYSHREE Last Admin: 10/26/23 08:35 Dose: 600 mg Lorazepam (Lorazepam 1 Mg Tablet) 1 mg PO Q6H PRN PRN Reason: anxiety/sleep Last Admin: 10/25/23 22:18 Dose: 1 mg Magnesium Hydroxide (Milk Of Magnesia 30 Ml Oral.Susp) 30 ml PO DAILY PRN PRN Reason: Constipation Nicotine (Nicotine 21 Mg Patch.Td24) 21 mg TRANSDERMA DAILY [facility] Last Admin: 10/26/23 08:36 Dose: 21 mg Nicotine Polacrilex (Nicotine Polacrilex 2 Mg Gum) 2 mg BUCCAL Q2H PRN PRN Reason: Nicotine Cravings Last Admin: 10/26/23 10:26 Dose: 2 mg Olanzapine (Olanzapine Odt 10 Mg Tab.Rapdis) 10 mg TRANSLINGU Q6H PRN PRN Reason: agitation Last Admin: 10/26/23 03:17 Dose: 10 mg Risperidone (Risperidone 1 Mg Tablet) 1 mg PO BID [facility] Last Admin: 10/26/23 08:35 Dose: 1 mg Risperidone (Risperidone 1 Mg Tablet) 1 mg PO DAILY PRN PRN Reason: agitation Last Admin: 10/25/23 18:57 Dose: 1 mg Allergies Allergies Allergy/AdvReac Type Severity Reaction Status Date / Time mite-Dermatophagoides Allergy Rash Verified 10/22/23 17:24 cecilio hanson [dust mite - [place]] Assessment & Plan Assessment & Plan (1) Bipolar disorder, manic: Status: Acute Code(s): F31.10 - Bipolar disorder, current episode manic without psychotic features, unspecified Assessment and Plan: Previously effective regimen of lithium and risperdal started. Plan 10/24: Continue current plans and regimen 10/25: pt refusing to increase scheduled regimen. remains manic. submitted 3- day notice. continue current mgmt. 10/26: less pressured, a tad less tangential. planning to [place] , declining med increases. slept 6 hours. improved, yet still quite ill. continue current mgmt. had PRNs of ativan and zyprexa last night. Reason for continued inpatient stay Substantial Risk for: inability to function and rapid decompensation Time Spent With Patient Time: Total time managing care of this patient today _35__ minutes.
[2023-10-26 19:49] VITALS: BP 134/76; PULSE 104; RESP 18; TEMP 36.6; O2SAT 96
[2023-10-26] MEDS: LORazepam 1 MG TABLET PO (23:23)
[2023-10-27] MEDS: Nicotine Polacrilex 2 MG GUM BUCCAL ×3 (05:08→13:58)
[2023-10-27] MEDS: risperiDONE 1 MG TABLET PO ×2 (05:42→08:11)
[2023-10-27 07:10] VITALS: BP 135/64; PULSE 88; RESP 16; TEMP 36.4; O2SAT 99
[2023-10-27] MEDS: Nicotine 21 MG PATCH.TD24 TRANSDERMA (08:10)
[2023-10-27] MEDS: Lithium Carbonate 300 MG CAPSULE 600 MG PO (08:11)
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
[2023-10-27] MEDS: OLANZapine ODT 10 MG TAB.RAPDIS TRANSLINGU (12:28)
--- NOTE | 2023-10-27 14:53 | PC.NURSE ---
Patient easily engaged. Reports feeling ready for discharge. Denies depression, reports feeling anxious to leave. Reports Olanzapine helpful for racing thoughts. Denies SI/HI plan or intent at this time. Discharge paperwork reviewed with patient reports understanding. Medications reviewed with patient reports understanding. Aftercare appointments reviewed with patient, reports understanding. Crisis numbers provided to patient. All belongings taken with patient. Information provided regarding walk in clinic, in addition to information regarding obtaining a PCP at [facility].
== END 2023-10-27 14:30 | disposition home or self-care (01) | DRG 885 ==
LOC: HO.ED 10-22 08:06 → HO.PADLT16 10-22 14:55
PROVIDERS: Social Worker; Admitting Provider Registered Nurse; Emergency Provider Emergency Medicine; Visit Provider Psychiatry & Neurology Psychiatry
DX: F31.10 Bipolar disorder, current episode manic without psychotic features, unspecified (principal); F17.210 Nicotine dependence, cigarettes, uncomplicated; Z71.6 Tobacco abuse counseling; Z23 Encounter for immunization; Z91.148 Patient's other noncompliance with medication regimen for other reason; Z20.822 Contact with and (suspected) exposure to COVID-19; Z79.899 Other long term (current) drug therapy
CPT/HCPCS: 36415; 80048; 80053; 80061; 80076; 80178; 80307; 81001; 85025; 87635; 90686; 99285; S9485

== ENCOUNTER → 2023-10-21 21:52 | Outpatient (BNV) | payer MEDICAID, SELFPAY | PROVIDERS: Emergency Provider Emergency Medicine; Visit Provider Social Worker | DX: F31.10 Bipolar disorder, current episode manic without psychotic features, unspecified (principal) | CPT/HCPCS: 90792; 99231; 99232; 99238; 99285 ==

== ENCOUNTER 2023-12-05 19:57 | Inpatient (IN) | payer MEDICAID, OTHER, SELFPAY ==
[2023-12-05 20:32] VITALS: BP 146/74; PULSE 86; RESP 18; TEMP 36.8; O2SAT 100; BMI 31.4
[2023-12-05 20:52] LABS: MANUAL DIFF FLAG NO
[2023-12-05 20:53] LABS: Basophils Absolute Auto 0.1 X10*3/uL (0.0-0.2); Basophils Percent Auto 0.6 % (0-2); Eosinophils Absolute Auto 0.2 X10*3/uL (0.0-0.4); Hematocrit 41.6 % (42.0-52.0); Hemoglobin 14.2 g/dl (14.0-18.0); Imm Gran Abs Auto 0.01 X10*3/uL (0.00-0.03); Imm Gran Pct Auto 0.1 % (0.0-0.4); Lymphocytes Absolute Auto 2.4 X10*3/uL (1.2-4.9); Lymphocytes Percent Auto 28.7 % (20-40); Mean Corpuscular HGB Conc 34.1 g/dl (31.0-36.0); Mean Corpuscular Hemoglobin 31.7 pg (27.0-33.0); Mean Corpuscular Volume 92.9 fL (80.0-98.0); Mean Platelet Volume 9.2 fL (9.4-12.4); Monocytes Percent Auto 11.6 % (2-11); Neutrophils Absolute Auto 4.8 x10*3/uL (2.0-8.3); Platelet Count 296 X10*3/uL (160-400); Red Blood Count 4.48 X10*6/uL (4.60-5.80); Red Cell Distribution Width 12.9 % (11.0-16.0); White Blood Count 8.4 X10*3/uL (4.8-10.8)
[2023-12-05 20:54] LABS: Appearance Urine Clear; Color Urine Yellow; Glucose Urine UA Negative (Negative); Leukocyte Esterase Urine Trace (Negative); Nitrite Urine Negative (Negative); PH 5.5 (5.0-9.0); Specific Gravity - Urine 1.025 (1.005-1.025); UMIC TRIGGER UA YES; Urine Blood Negative (Negative); Urine Ketones Negative (Negative); Urine Protein Negative (Neg-Trace)
[2023-12-05 20:56] LABS: Bacteria Urine None Seen (None Seen); Hyaline Casts Urine 0-2 /LPF (0-2); RBC Urine 0-2 /HPF (0-2); Squamous Epithelial Cell Urine 0-2 /HPF (0-2); WBC Urine 21-50 /HPF (0-5)
[2023-12-05 21:05] LABS: Amphetamine Screen Urine Not Detected (Not Detect); Barbiturates, Urine Not Detected (Not Detect); Benzodiazepines Screen Urine Not Detected (Not Detect); Cannabinoid Screen Urine POSITIVE (Not Detect); Cocaine Screen Urine Not Detected (Not Detect); Fentanyl, urine Not Detected (Not Detect); Opiate Screen Urine Not Detected (Not Detect); Phencyclidine Screen Urine Not Detected (Not Detect)
[2023-12-05 21:12] LABS: COVID-19 Test Negative (Negative); IDNOW Serial# 58CA691E
[2023-12-05 21:17] LABS: Alanine Aminotransferase 20 U/L (0-40); Albumin Level 4.5 g/dL (3.5-5.0); Alkaline Phosphatase 73 U/L (39-117); Anion Gap 13 (12-20); Aspartate Amino Transferase 17 U/L (5-37); Bilirubin Total 0.3 mg/dL (0.0-1.0); Blood Urea Nitrogen 12 mg/dL (9-16); Calcium 9.1 mg/dL (8.4-10.2); Carbon Dioxide 23 mmol/L (22-29); Chloride 109 mmol/L (96-108); Creatinine Clr Calc Pharmacy 161.1; Estimated Glomerular Filt Rate > 60; Ethanol < 10 mg/dL; Glucose Random 103 mg/dL (60-115); Potassium 3.8 mmol/L (3.3-5.1); Sodium 141 mmol/L (135-145); Total Protein 7.6 g/dL (6.5-8.0)
--- NOTE | 2023-12-05 21:25 | PC.NURSE ---
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 pt changed over by security belongings secured. 1:1 sitter. nad. calm/cooperative.
--- NOTE | 2023-12-05 21:52 | PC.NURSE ---
pt reports thoughts of SI; when asked if has a plan pt stated i don't know. pt reports living life fast and feels as there is a lot going on triggering these thoughts. pt reports was in [facility] [place] [facility] [place] and feels i left too soon. 1:1 sitter at bedside. awaiting primary eval by ed provider.
--- NOTE | 2023-12-05 22:13 | PC.NURSE ---
med rec done with pt awaiting primary eval by ed provider however pt reporting has not taken pm meds.
[2023-12-05] MEDS: OLANZapine 10 MG TABLET PO (22:51)
[2023-12-05] MEDS: risperiDONE 1 MG TABLET PO (22:51)
[2023-12-05] MEDS: Lithium Carbonate 300 MG CAPSULE 600 MG PO (22:51)
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
[2023-12-05 23:13] LABS: Delay - Chemistry DELAY
[2023-12-05 23:25] LABS: Lithium 0.19 mmol/L (0.60-1.20)
--- NOTE | 2023-12-06 | ECG_ITS ---
Test Reason : CHECK QT Blood Pressure : / mmHG Vent. Rate : 060 BPM Atrial Rate : 060 BPM P-R Int : 154 ms QRS Dur : 098 ms QT Int : 384 ms P-R-T Axes : 025 059 048 degrees QTc Int : 384 ms Normal sinus rhythm Normal ECG No previous ECGs available Referred By: Lilibeth Vazquez Electronically Signed By:Jair Clark
[2023-12-06 00:34] VITALS: BP 117/73; PULSE 54; RESP 17; TEMP 36.2; O2SAT 98
--- NOTE | 2023-12-06 00:36 | MHC.EDTECH ---
PT RESTING IN BED RESPIRATIONS EVEN AND UNLABORED PT EXPRESSES NO OTHER NEEDS AT THIS TIME PLAN OF CARE ONGOING
[2023-12-06] MEDS: Nicotine 21 MG PATCH.TD24 TRANSDERMA (03:12)
[2023-12-06 04:00] VITALS: BP 117/69; PULSE 64; RESP 16; TEMP 36.4; O2SAT 99
--- NOTE | 2023-12-06 08:58 | PC.NURSE ---
ate breakfast, skin wpd, sitter at bedside, sleeping soundly, will allow to sleep and give am meds later
[2023-12-06] MEDS: Lithium Carbonate 300 MG CAPSULE 600 MG PO ×2 (09:02→21:57)
[2023-12-06] MEDS: risperiDONE 1 MG TABLET PO ×3 (09:02→21:57)
[2023-12-06] MEDS: OLANZapine 10 MG TABLET PO ×2 (10:25→21:57)
[2023-12-06 10:28] VITALS: BP 134/78; PULSE 75; RESP 16; TEMP 36.7; O2SAT 95
--- NOTE | 2023-12-06 10:58 | MHC.CARE ---
Patient was evaluated by the CARE Team and will require an inpatient psychiatric admission, he will remain in the ED until a placement is secured. Provider Dr. Vazquez updated.
[2023-12-06] MEDS: Nicotine Polacrilex Lozenge 2 MG LOZENGE BUCCAL ×2 (13:53→17:21)
--- NOTE | 2023-12-06 14:42 | PC.NURSE ---
Nurse to nurse given to m3 RN
[2023-12-06 15:30] VITALS: BP 150/73; PULSE 70; RESP 18; TEMP 2.5; TEMP 36.5; O2SAT 98
[2023-12-06 16:43] VITALS: BMI 32.8
--- NOTE | 2023-12-06 17:38 | PC.ADMIT ---
Addendum entered by Komal Perez RN 12/06/23 17:57: Bhanu is oriented to person, place, and time. Thought process is organized and he is help seeking. Reports poor sleep over the weekend and was awake for 48 hrs straight while driving from [place] to [place]. He has a good appetite and reports he has gained 10 lbs. He drinks alcohol once a month, if even that and admits to daily use of Marijuana. On Nicotine replacement therapy for daily cigarette smoking. Sharps checks and skin assessment completed with KELLI, another RN, and male counselor. Oriented to unit, on q15 min safety checks, looking forward to dinner. Original Note: Blane was admitted on a CV to from [facility] ED POD at 1518. Pt admitted with diagnosis of unspecified Bipolar disorder. Reports he was previously taking his medications Wayne, Risperidal, and Zyprexa, but intentionally stopped taking them while he was on vacation in [place] for 7 days. He reports these medications were making him lethargic and he had stuff to take care of in [place]. Since returning to [place] on Wednesday, reports Things have gotten real dark, and I know I needed to come to the hospital. Bhanu is pleasant, talkative, cooperative and motivated to get better. He is hypomanic, speaking fast, but not pressured. Presently denies SI/HI/AVH but did report on Wednesday hearing a dark voice tell me to electrocute myself. It was a brief thought but it scared me .
[2023-12-06] MEDS: Nicotine Polacrilex 2 MG GUM 4 MG BUCCAL ×2 (19:54→22:00)
[2023-12-06 20:25] VITALS: BP 141/76; PULSE 74; RESP 18; TEMP 36.6; O2SAT 100
[2023-12-06] MEDS: traZODone HCL 50 MG TABLET PO (21:57)
[2023-12-07 07:39] VITALS: BP 114/77; PULSE 72; RESP 16; TEMP 36.5; O2SAT 98
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
[2023-12-07] MEDS: Lithium Carbonate 300 MG CAPSULE 600 MG PO ×2 (09:45→21:45)
[2023-12-07] MEDS: risperiDONE 1 MG TABLET PO ×2 (09:46→21:45)
[2023-12-07] MEDS: OLANZapine 10 MG TABLET PO ×2 (09:46→21:45)
[2023-12-07] MEDS: Nicotine 21 MG PATCH.TD24 TRANSDERMA (09:47)
[2023-12-07] MEDS: Nicotine Polacrilex 2 MG GUM 4 MG BUCCAL ×4 (10:47→21:56)
[2023-12-07] MEDS: Nicotine Polacrilex Lozenge 2 MG LOZENGE BUCCAL (19:47)
[2023-12-07] MEDS: Acetaminophen 325 MG TABLET 650 MG PO (20:50)
[2023-12-07] MEDS: traZODone HCL 50 MG TABLET PO (21:45)
[2023-12-07 21:50] VITALS: BP 162/67; PULSE 70; RESP 16; TEMP 36.9; O2SAT 97
[2023-12-08] MEDS: risperiDONE 1 MG TABLET PO (08:43)
[2023-12-08] MEDS: Lithium Carbonate 300 MG CAPSULE 600 MG PO ×2 (08:43→20:21)
[2023-12-08] MEDS: Nicotine 21 MG PATCH.TD24 TRANSDERMA (08:44)
[2023-12-08] MEDS: Nicotine Polacrilex 2 MG GUM 4 MG BUCCAL ×4 (09:52→20:21)
[2023-12-08 11:00] VITALS: BP 117/79; PULSE 86; RESP 20; TEMP 36.7; O2SAT 98
--- NOTE | 2023-12-08 12:26 | HO.PSYCHPN ---
Subjective Subjective Date of Service: 12/08/23 Reason For Visit: SI Interim History: reports he slept well. up at 0300 ready for the day, then was told the time and able to go back to sleep until 0815. would like to consolidate risperidone at HS. feeling well and full of energy this morning even after having had 1 mg risperidone. per staff, dep/anx low. bright, visible. pleasant, polite. no SI/HI. + meds. Mental Status Exam Mental Status Exam Narrative: Appearance: wearing street clothes, fair hygiene, in NAD Behavior: cooperative Psychomotor: mild PMA of frequent truncal movements and hand gestures Speech: voluble but not pressured TP: linear and topical TC: Tx and discharge planning mood: mildly euphoric Affect: hyper-intense, non-labile SI: none expressed HI: none expressed VH/AH: none expressed Insight/judgment: impaired x 2. Memory/cog: alert, oriented x3. Diagnostics Vital Signs (24Hr): Vital Signs - 24 hr 12/07/23 21:50 12/08/23 11:00 Temperature 98.4 F 98.1 F Pulse Rate 70 86 Respiratory Rate 16 20 Blood Pressure 162/67 H 117/79 Pulse Oximetry 97 98 Oxygen Delivery Method Room Air Room Air BMI result Body Mass Index 32.8 Labs 12/05/23 20:45 12/05/23 20:45 Medications Medications Current Medications Acetaminophen (Acetaminophen 325 Mg Tablet) 650 mg PO Q6H PRN PRN Reason: Headache/Pain Mild Scale (1-3) Last Admin: 12/07/23 20:50 Dose: 650 mg Al Hydroxide/Mg Hydroxide (Magnesium Hydrox/Alum Hydrox 30 Ml Oral.Susp) 30 ml PO Q6H PRN PRN Reason: Heartburn/Nausea Hydroxyzine HCl (Hydroxyzine Hcl 25 Mg Tablet) 25 mg PO Q6H PRN PRN Reason: Anxiety [place] Carbonate ([place] Carbonate 300 Mg Capsule) 600 mg PO BID [facility] Last Admin: 12/08/23 08:43 Dose: 600 mg Magnesium Hydroxide (Milk Of Magnesia 30 Ml Oral.Susp) 30 ml PO DAILY PRN PRN Reason: Constipation Nicotine (Nicotine 21 Mg Patch.Td24) 21 mg TRANSDERMA DAILY [facility] Last Admin: 12/08/23 08:44 Dose: 21 mg Nicotine Polacrilex (Nicotine Polacrilex Lozenge 2 Mg Lozenge) 2 mg BUCCAL Q2H PRN PRN Reason: Nicotine Cravings Last Admin: 12/07/23 19:47 Dose: 2 mg Nicotine Polacrilex (Nicotine Polacrilex 2 Mg Gum) 4 mg BUCCAL Q2H PRN PRN Reason: Nicotine Cravings Last Admin: 12/08/23 09:52 Dose: 4 mg Olanzapine (Olanzapine 10 Mg Tablet) 10 mg PO BEDTIME [facility] Last Admin: 12/07/23 21:45 Dose: 10 mg Risperidone (Risperidone 1 Mg Tablet) 1 mg PO DAILY PRN PRN Reason: moderate agitation Last Admin: 12/06/23 17:21 Dose: 1 mg Risperidone (Risperidone 2 Mg Tablet) 2 mg PO BEDTIME J[facility] Trazodone HCl (Trazodone Hcl 50 Mg Tablet) 50 mg PO BEDTIME [facility] Last Admin: 12/07/23 21:45 Dose: 50 mg Allergies Allergies Allergy/AdvReac Type Severity Reaction Status Date / Time mite-Dermatophagoides Allergy Rash Verified 12/05/23 20:35 valentin cecilio [dust mite - [place]] Assessment & Plan Assessment & Plan (1) Bipolar disorder, manic: Status: Acute Code(s): F31.10 - Bipolar disorder, current episode manic without psychotic features, unspecified Plan 12/06: DC morning dose of olanzapine 10 mg due to sedation, continue HS dose of 10 mg. continue lithium 600 BID and risperidone 1 BID for now. plan to consolidate risperidone at HS prior to discharge. lithium for 5 days, then check labs. refer for therapy and psychiatry. 12/07: continues mildly euphoric. plenty of ebergy this morning even with risperidone 1 mg in the a.m. wants to consolidate all risperidone at HS, however, which will be done as of this evening. Reason for continued inpatient stay Substantial Risk for: inability to function and rapid decompensation Time Spent With Patient Time: Total time managing care of this patient today _25___ minutes.
[2023-12-08] MEDS: Acetaminophen 325 MG TABLET 650 MG PO (13:23)
[2023-12-08] MEDS: hydrOXYzine HCL 25 MG TABLET PO (18:57)
[2023-12-08 19:50] VITALS: BP 126/68; PULSE 80; RESP 16; TEMP 36.6; O2SAT 100
[2023-12-08] MEDS: risperiDONE 2 MG TABLET PO (20:21)
[2023-12-08] MEDS: OLANZapine 10 MG TABLET PO (20:21)
[2023-12-08] MEDS: traZODone HCL 50 MG TABLET PO ×2 (22:04→22:50)
[2023-12-09] MEDS: hydrOXYzine HCL 25 MG TABLET PO ×4 (03:35→19:26)
[2023-12-09 06:00] VITALS: BP 136/74; PULSE 88; RESP 16; TEMP 36.2; O2SAT 98
[2023-12-09 07:00] VITALS: BMI 33.2
[2023-12-09] MEDS: Nicotine Polacrilex 2 MG GUM 4 MG BUCCAL ×4 (07:40→21:07)
[2023-12-09] MEDS: Lithium Carbonate 300 MG CAPSULE 600 MG PO ×2 (08:35→21:07)
[2023-12-09] MEDS: Nicotine 21 MG PATCH.TD24 TRANSDERMA (08:37)
[2023-12-09] MEDS: Acetaminophen 325 MG TABLET 650 MG PO ×2 (09:16→17:26)
--- NOTE | 2023-12-09 15:17 | HO.PSYCHPN ---
Subjective Subjective Date of Service: 12/09/23 Reason For Visit: SI Interim History: no change in presentation. states he felt very energized and ready to go for a run this morning. still very voluble, grandiose. discusses his concerns re pt's discharging tomorrow, urges pt to remain through the weekend for further stabilization. pt agreeable to plan. per staff, no notable events or behaviors. Mental Status Exam Mental Status Exam Narrative: Appearance: wearing street clothes, fair hygiene, in NAD Behavior: cooperative Psychomotor: mild PMA of frequent hand gestures Speech: voluble but not pressured TP: linear and topical TC: Tx and discharge planning mood: mildly euphoric Affect: hyper-intense, non-labile SI: none expressed HI: none expressed VH/AH: none expressed Insight/judgment: impaired x 2. Memory/cog: alert, oriented x3. Diagnostics Vital Signs (24Hr): Vital Signs - 24 hr 12/08/23 19:50 12/09/23 06:00 Temperature 97.8 F 97.2 F Pulse Rate 80 88 Respiratory Rate 16 16 Blood Pressure 126/68 136/74 Pulse Oximetry 100 98 Oxygen Delivery Method Room Air Room Air BMI result Body Mass Index 33.2 Labs 12/05/23 20:45 12/05/23 20:45 Medications Medications Current Medications Acetaminophen (Acetaminophen 325 Mg Tablet) 650 mg PO Q6H PRN PRN Reason: Headache/Pain Mild Scale (1-3) Last Admin: 12/09/23 09:16 Dose: 650 mg Al Hydroxide/Mg Hydroxide (Magnesium Hydrox/Alum Hydrox 30 Ml Oral.Susp) 30 ml PO Q6H PRN PRN Reason: Heartburn/Nausea Carbamide Peroxide (Carbamide Peroxide 6.5% Otic 15 Ml Drpbtl) 5 drop EAR-LEFT BID [facility] Stop: 12/13/23 12:12 Hydroxyzine HCl (Hydroxyzine Hcl 25 Mg Tablet) 25 mg PO Q4H PRN PRN Reason: Anxiety Last Admin: 12/09/23 14:14 Dose: 25 mg [place] Carbonate ([place] Carbonate 300 Mg Capsule) 600 mg PO BID [facility] Last Admin: 12/09/23 08:35 Dose: 600 mg Magnesium Hydroxide (Milk Of Magnesia 30 Ml Oral.Susp) 30 ml PO DAILY PRN PRN Reason: Constipation Nicotine (Nicotine 21 Mg Patch.Td24) 21 mg TRANSDERMA DAILY [facility] Last Admin: 12/09/23 08:37 Dose: 21 mg Nicotine Polacrilex (Nicotine Polacrilex Lozenge 2 Mg Lozenge) 2 mg BUCCAL Q2H PRN PRN Reason: Nicotine Cravings Last Admin: 12/07/23 19:47 Dose: 2 mg Nicotine Polacrilex (Nicotine Polacrilex 2 Mg Gum) 4 mg BUCCAL Q2H PRN PRN Reason: Nicotine Cravings Last Admin: 12/09/23 13:04 Dose: 4 mg Olanzapine (Olanzapine 10 Mg Tablet) 10 mg PO BEDTIME [facility] Last Admin: 12/08/23 20:21 Dose: 10 mg Risperidone (Risperidone 1 Mg Tablet) 1 mg PO DAILY PRN PRN Reason: moderate agitation Last Admin: 12/06/23 17:21 Dose: 1 mg Risperidone (Risperidone 2 Mg Tablet) 2 mg PO BEDTIME JAYSHREE Last Admin: 12/08/23 20:21 Dose: 2 mg Trazodone HCl (Trazodone Hcl 50 Mg Tablet) 50 mg PO BEDTIME [facility] Last Admin: 12/08/23 22:50 Dose: 50 mg Zinc Acetate/Diphenhydramine (Diphenhydramine Hcl 2 % Cream 28 Gm Tube) 1 appl TOPICAL QID PRN; Protocol PRN Reason: Itching Allergies Allergies Allergy/AdvReac Type Severity Reaction Status Date / Time mite-Dermatophagoides Allergy Rash Verified 12/05/23 20:35 cecilio hanson [dust mite - [place]] Assessment & Plan Assessment & Plan (1) Bipolar disorder, manic: Status: Acute Code(s): F31.10 - Bipolar disorder, current episode manic without psychotic features, unspecified Plan 12/06: DC morning dose of olanzapine 10 mg due to sedation, continue HS dose of 10 mg. continue lithium 600 BID and risperidone 1 BID for now. plan to consolidate risperidone at HS prior to discharge. lithium for 5 days, then check labs. refer for therapy and psychiatry. 12/07: continues mildly euphoric. plenty of energy this morning even with risperidone 1 mg in the a.m. wants to consolidate all risperidone at HS, however, which will be done as of this evening. 12/08: excessive energy again this morning. will continue current regimen and check labs after 5 days on lithium. Reason for continued inpatient stay Substantial Risk for: inability to function and rapid decompensation Time Spent With Patient Time: Total time managing care of this patient today __25__ minutes.
[2023-12-09] MEDS: Nicotine Polacrilex Lozenge 2 MG LOZENGE BUCCAL (16:45)
[2023-12-09 19:50] VITALS: BP 141/71; PULSE 80; RESP 16; TEMP 36.6; O2SAT 99
[2023-12-09] MEDS: Carbamide Peroxide 6.5% Otic 15 ML DRPBTL 5 DROP EAR-LEFT (21:06)
[2023-12-09] MEDS: OLANZapine 10 MG TABLET PO (21:07)
[2023-12-09] MEDS: risperiDONE 2 MG TABLET PO (21:07)
[2023-12-09] MEDS: traZODone HCL 50 MG TABLET PO (22:24)
[2023-12-10] MEDS: traZODone HCL 50 MG TABLET PO ×2 (02:02→22:28)
[2023-12-10 06:00] VITALS: BP 122/61; PULSE 83; RESP 18; TEMP 36.4; O2SAT 100
[2023-12-10] MEDS: Acetaminophen 325 MG TABLET 650 MG PO ×3 (08:22→21:07)
[2023-12-10] MEDS: Lithium Carbonate 300 MG CAPSULE 600 MG PO ×2 (08:22→21:07)
[2023-12-10] MEDS: Nicotine 21 MG PATCH.TD24 TRANSDERMA (08:23)
[2023-12-10] MEDS: Carbamide Peroxide 6.5% Otic 15 ML DRPBTL 5 DROP EAR-LEFT ×2 (08:24→22:28)
[2023-12-10] MEDS: Nicotine Polacrilex 2 MG GUM 4 MG BUCCAL ×3 (10:01→19:57)
[2023-12-10] MEDS: hydrOXYzine HCL 25 MG TABLET PO ×2 (10:01→19:57)
[2023-12-10] MEDS: risperiDONE 1 MG TABLET PO (14:39)
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
[2023-12-10] MEDS: Nicotine Polacrilex Lozenge 2 MG LOZENGE BUCCAL (17:13)
[2023-12-10 20:00] VITALS: BP 119/74; PULSE 79; TEMP 37.1
[2023-12-10] MEDS: OLANZapine 10 MG TABLET PO (21:07)
[2023-12-10] MEDS: risperiDONE 2 MG TABLET PO (21:07)
[2023-12-10] MEDS: diphenhydrAMINE HCl 2 % Cream 28 GM TUBE 1 APPL TOPICAL (23:05)
[2023-12-11 06:00] VITALS: BP 129/75; PULSE 70; RESP 16; TEMP 36.4; O2SAT 98
[2023-12-11] MEDS: Nicotine 21 MG PATCH.TD24 TRANSDERMA (08:05)
[2023-12-11] MEDS: Lithium Carbonate 300 MG CAPSULE 600 MG PO ×2 (08:06→21:29)
[2023-12-11] MEDS: diphenhydrAMINE HCl 2 % Cream 28 GM TUBE 1 APPL TOPICAL ×2 (08:07→21:29)
[2023-12-11] MEDS: Carbamide Peroxide 6.5% Otic 15 ML DRPBTL 5 DROP EAR-LEFT (08:08)
[2023-12-11] MEDS: Acetaminophen 325 MG TABLET 650 MG PO ×2 (08:36→15:04)
[2023-12-11] MEDS: hydrOXYzine HCL 25 MG TABLET PO ×2 (11:24→19:05)
[2023-12-11] MEDS: Nicotine Polacrilex 2 MG GUM 4 MG BUCCAL ×4 (12:10→20:20)
--- NOTE | 2023-12-11 14:38 | HO.PSYCHPN ---
Subjective Subjective Date of Service: 12/11/23 Reason For Visit: SI Subjective Notes: Conditional Voluntary Healthcare Proxy: No Guardianship: No Medical Problems Affecting Mental Status: No Interim History: 28 yo presenting somewhat up and anxious to be dced on Wednesday- explained reason he stayed the weekend as he was seen by md just after fire drill which startled him and he was hyper concerned re all on unit- other patients and such- has big plans for upcoming week and at first says flight out on Wednesday then later says scheduled for . Medication Compliance: Yes Side effects from medications: No Attending Groups: Yes Review of Systems Acute medical concerns: No Medical Review of Systems: unchanged Mental Status Exam Mental Status Exam Patient Appearance: Well Grooomed and Appropriate (a bit intense and a bit too close interpersonal space but redirectable) Patient Orientation: Person, Place, Time and Situation Level of Consciousness: Awake and Appropriate Patient Behavior: Appropriate, Talkative and Cooperative Mood Description: Happy and Apprehensive Affect Description: Expansive Patient Cognition Impaired: No Ability to Follow Directions: Good Speech Pattern: Clear Memory Description: Intact Hallucinations: None Thought Process: Intact and Racing Thought Content: positive for Goal Oriented and positive for Linear Abnormal Motor Activity Signs and Symptoms: Restlessness Judgement: Fair Diagnostics Vital Signs (24Hr): Vital Signs - 24 hr 12/10/23 20:00 12/11/23 06:00 Temperature 98.7 F 97.5 F Pulse Rate 79 70 Respiratory Rate 16 Blood Pressure 119/74 129/75 Pulse Oximetry 98 Oxygen Delivery Method Room Air BMI result Body Mass Index 33.2 Labs 12/05/23 20:45 12/11/23 20:02 Medications Medications Current Medications Acetaminophen (Acetaminophen 325 Mg Tablet) 650 mg PO Q6H PRN PRN Reason: Headache/Pain Mild Scale (1-3) Last Admin: 12/11/23 08:36 Dose: 650 mg Al Hydroxide/Mg Hydroxide (Magnesium Hydrox/Alum Hydrox 30 Ml Oral.Susp) 30 ml PO Q6H PRN PRN Reason: Heartburn/Nausea Carbamide Peroxide (Carbamide Peroxide 6.5% Otic 15 Ml Drpbtl) 5 drop EAR-LEFT BID [facility] Stop: 12/13/23 12:12 Last Admin: 12/11/23 08:08 Dose: 5 drop Hydroxyzine HCl (Hydroxyzine Hcl 25 Mg Tablet) 25 mg PO Q4H PRN PRN Reason: Anxiety Last Admin: 12/11/23 11:24 Dose: 25 mg [place] Carbonate ([place] Carbonate 300 Mg Capsule) 600 mg PO BID [facility] Last Admin: 12/11/23 08:06 Dose: 600 mg Magnesium Hydroxide (Milk Of Magnesia 30 Ml Oral.Susp) 30 ml PO DAILY PRN PRN Reason: Constipation Nicotine (Nicotine 21 Mg Patch.Td24) 21 mg TRANSDERMA DAILY [facility] Last Admin: 12/11/23 08:05 Dose: 21 mg Nicotine Polacrilex (Nicotine Polacrilex Lozenge 2 Mg Lozenge) 2 mg BUCCAL Q2H PRN PRN Reason: Nicotine Cravings Last Admin: 12/10/23 17:13 Dose: 2 mg Nicotine Polacrilex (Nicotine Polacrilex 2 Mg Gum) 4 mg BUCCAL Q2H PRN PRN Reason: Nicotine Cravings Last Admin: 12/11/23 12:10 Dose: 4 mg Olanzapine (Olanzapine 10 Mg Tablet) 10 mg PO BEDTIME [facility] Last Admin: 12/10/23 21:07 Dose: 10 mg Risperidone (Risperidone 1 Mg Tablet) 1 mg PO DAILY PRN PRN Reason: moderate agitation Last Admin: 12/10/23 14:39 Dose: 1 mg Risperidone (Risperidone 2 Mg Tablet) 2 mg PO BEDTIME [facility]SHREE Last Admin: 12/10/23 21:07 Dose: 2 mg Trazodone HCl (Trazodone Hcl 50 Mg Tablet) 50 mg PO BEDTIME JAYSHREE Last Admin: 12/10/23 22:28 Dose: 50 mg Zinc Acetate/Diphenhydramine (Diphenhydramine Hcl 2 % Cream 28 Gm Tube) 1 appl TOPICAL QID PRN; Protocol PRN Reason: Itching Last Admin: 12/11/23 08:07 Dose: 1 appl Allergies Allergies Allergy/AdvReac Type Severity Reaction Status Date / Time mite-Dermatophagoides Allergy Rash Verified 12/05/23 20:35 cecilio hanson [dust mite - [place]] Assessment & Plan Assessment & Plan (1) Bipolar disorder, manic: Status: Acute Code(s): F31.10 - Bipolar disorder, current episode manic without psychotic features, unspecified Plan 12/06: DC morning dose of olanzapine 10 mg due to sedation, continue HS dose of 10 mg. continue lithium 600 BID and risperidone 1 BID for now. plan to consolidate risperidone at HS prior to discharge. lithium for 5 days, then check labs. refer for therapy and psychiatry. 12/07: continues mildly euphoric. plenty of energy this morning even with risperidone 1 mg in the a.m. wants to consolidate all risperidone at HS, however, which will be done as of this evening. 12/08: excessive energy again this morning. will continue current regimen and check labs after 5 days on lithium. 12/09: no change in presentation. feeling better, slightly euphoric. pleasant, cooperative. continue current mgmt. plannig for wednesday discharge. labs ordered for wednesday tom. Patient educated on: medication risk/benefits and other Informed Consent: understands Reason for continued inpatient stay Substantial Risk for: rapid decompensation Time Spent With Patient Time: Total time managing care of this patient today ____ minutes.
[2023-12-11] MEDS: risperiDONE 1 MG TABLET PO (14:45)
[2023-12-11] MEDS: Loratadine 10 MG TABLET PO (15:46)
--- NOTE | 2023-12-11 16:14 | P.EN_ITS ---
Event Note Date of Service: 12/11/23 Event Note: Pt with bipolar disorder admitted to psychiatry with consult placed to hospitalist service for evaluation of stabbing left ear pain. 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 States the tube was directed at a wall and then high pressured air hit the wall and reverberated back hitting his left ear. Since then has had interrmittent tinnitus and diminished hearing, particularly in the left ear. Has not been seen by ENT for this. However, several days ago developed worsening muffled hearing and intermittent sharp L ears pains. No discharge or fevers. No sinus pain, congestions, sore throat. On exam: There is mild tenderness with manipulation of the left pinna. No pre or post auricular adenopathy. No mastoid tenderness. Ear canal is without erythema or edema. There is wet appearing brown cerumen partially impacting the left canal with minimal visual of the left tm though does appear to be in tact (though visual is slightly obstructed) A/P: pt has been using debrox drops x 4 doses. Recommend continuing for an additional 2 doses and will attempt cerumen irrigation tomorrow afternoon. There is no evidence of acute infection at time of exam though again visual of the TM is somewhat impeded. However, patient is afebrile and I have low suspicion for bacterial OM at this time. Given recent trauma, patient should be seen by ENT upon discharge for further evaluation and would likely benefit from hearing evaluation at that time. Will continue following with plan for cerumen disimpaction attempt tomorrow afternoon. Please have patient sign procedure consent form prior to cerumen rem oval Time Spent With Patient Time: Total time managing care of this patient today ____ minutes.
[2023-12-11 19:15] VITALS: BP 112/69; PULSE 76; RESP 16; TEMP 37.1; O2SAT 97
[2023-12-11 20:26] LABS: Anion Gap 13 (12-20); Blood Urea Nitrogen 16 mg/dL (9-16); Calcium 9.5 mg/dL (8.4-10.2); Carbon Dioxide 26 mmol/L (22-29); Chloride 104 mmol/L (96-108); Estimated Glomerular Filt Rate > 60; Glucose Random 83 mg/dL (60-115); Potassium 4.4 mmol/L (3.3-5.1); Sodium 139 mmol/L (135-145)
[2023-12-11 20:45] LABS: Lithium 0.35 mmol/L (0.60-1.20)
[2023-12-11] MEDS: risperiDONE 2 MG TABLET PO (21:29)
[2023-12-11] MEDS: OLANZapine 10 MG TABLET PO (21:30)
[2023-12-11] MEDS: traZODone HCL 50 MG TABLET PO (22:26)
[2023-12-11] MEDS: Nicotine Polacrilex Lozenge 2 MG LOZENGE BUCCAL (22:29)
[2023-12-12 07:35] VITALS: BP 119/69; PULSE 67; RESP 14; TEMP 36.6; O2SAT 97
[2023-12-12] MEDS: Lithium Carbonate 300 MG CAPSULE 600 MG PO ×2 (08:07→20:48)
[2023-12-12] MEDS: Nicotine 21 MG PATCH.TD24 TRANSDERMA (08:09)
[2023-12-12] MEDS: hydrOXYzine HCL 25 MG TABLET PO (08:46)
[2023-12-12] MEDS: Acetaminophen 325 MG TABLET 650 MG PO ×2 (08:47→17:54)
[2023-12-12] MEDS: Nicotine Polacrilex 2 MG GUM 4 MG BUCCAL ×4 (09:56→20:56)
[2023-12-12] MEDS: Loratadine 10 MG TABLET PO (11:06)
[2023-12-12] MEDS: diphenhydrAMINE HCl 2 % Cream 28 GM TUBE 1 APPL TOPICAL (12:21)
--- NOTE | 2023-12-12 13:39 | PM.EVENT ---
Event Note Date of Service: 12/12/23 Event Note: Pt seen in follow up for left ear pain. Pt examined yesterday with large amount of brown cerumen obstructing full visual of TM. Completed course of debrox yesterday and attempt made at cerumen irrigation using warm water and hydrogen peroxide with large amount of cerumen removed. Curette was not needed. External ear with mild tenderness of the pinna with manipulation. Canal with scant brown cerumen along sanchez but clear visual of TM which is noted to be erythematous, bulging, but in tact consistent with acute otitis media. He is prescribed augmentin 875mg BID. Advised to eat yogurt prior to abx administration and to consume daily for probiotics. He should conitnue on discharge to complete 7 day (14 doses) course. He is also advised to follow up with PCP for referral to ENT due to recent trauma to the ear with ongoing hearing loss. Discharge plan updated as patient reports he will be going home tomorrow. Time Spent With Patient Time: Total time managing care of this patient today ____ minutes.
--- NOTE | 2023-12-12 13:54 | P.PNPSI_ITS ---
Subjective Subjective Date of Service: 12/12/23 Reason For Visit: SI Subjective Notes: Conditional Voluntary Medical Problems Affecting Mental Status: No (but ear infection dxed starting abiotics today, no rupture!) Interim History: 28 yo WM with bipolar recent shady, still slightly hypomanic but in good control using prns appropriately needing higher dose of aterax (hydroxyzine prn 25mg not making much difference) inc to 50mg today requested. Slept, eating (too much discussed some concerns re weight but doesn't want to make a change to meds around it was just surprised) no si /hi/psychosis Medication Compliance: Yes Side effects from medications: Yes (weight gain) Attending Groups: Intermittent Review of Systems Acute medical concerns: Yes ear infection seen and treated by hospitalist! Medical Review of Systems: unchanged Mental Status Exam Mental Status Exam Patient Appearance: Well Grooomed and Appropriate Patient Orientation: Person, Place, Time and Situation Level of Consciousness: Awake Patient Behavior: Appropriate Mood Description: Calm and Anxious (about dc has plans for his week he is anxious to make happen) Affect Description: Expansive (slight) Patient Cognition Impaired: No Ability to Follow Directions: Good Speech Pattern: Clear Hallucinations: None Thought Process: Intact and Goal Oriented Thought Content: positive for Intact Depressive Symptoms: Changes in Appetite and Significant Weight Gain (8lb? discussed out pt could consider lybalvi) Judgement: Fair Diagnostics Vital Signs (24Hr): Vital Signs - 24 hr 12/11/23 19:15 12/12/23 07:35 Temperature 98.7 F 97.8 F Pulse Rate 76 67 Respiratory Rate 16 14 Blood Pressure 112/69 119/69 Pulse Oximetry 97 97 Oxygen Delivery Method Room Air Room Air BMI result Body Mass Index 33.2 Labs 12/05/23 20:45 12/11/23 20:02 Labs: Laboratory Results - last 48 hr 12/11/23 20:02 Sodium 139 Potassium 4.4 Chloride 104 Carbon Dioxide 26 Anion Gap 13 BUN 16 Creatinine 0.90 Estim Creat Clear Calc 180.0 Estimated GFR > 60 Random Glucose 83 Calcium 9.5 Quin[place] 0.35 L Medications Medications Current Medications Acetaminophen (Acetaminophen 325 Mg Tablet) 650 mg PO Q6H PRN PRN Reason: Headache/Pain Mild Scale (1-3) Last Admin: 12/12/23 08:47 Dose: 650 mg Al Hydroxide/Mg Hydroxide (Magnesium Hydrox/Alum Hydrox 30 Ml Oral.Susp) 30 ml PO Q6H PRN PRN Reason: Heartburn/Nausea Amoxicillin/Clavulanate Potassium (Amoxicillin/Potassium Clav 875 Mg Tablet) 875 mg PO Q12H [facility] Stop: 12/19/23 01:46 Carbamide Peroxide (Carbamide Peroxide 6.5% Otic 15 Ml Drpbtl) 5 drop EAR-LEFT BID [facility] Stop: 12/13/23 12:12 Last Admin: 12/11/23 08:08 Dose: 5 drop Hydroxyzine HCl (Hydroxyzine Hcl 25 Mg Tablet) 25 mg PO Q4H PRN PRN Reason: Anxiety Last Admin: 12/12/23 08:46 Dose: 25 mg Quincy Carbonate (Quincy Carbonate 300 Mg Capsule) 600 mg PO BID [facility] Last Admin: 12/12/23 08:07 Dose: 600 mg Loratadine (Loratadine 10 Mg Tablet) 10 mg PO DAILY PRN PRN Reason: allergies Last Admin: 12/12/23 11:06 Dose: 10 mg Magnesium Hydroxide (Milk Of Magnesia 30 Ml Oral.Susp) 30 ml PO DAILY PRN PRN Reason: Constipation Nicotine (Nicotine 21 Mg Patch.Td24) 21 mg TRANSDERMA DAILY [facility] Last Admin: 12/12/23 08:09 Dose: 21 mg Nicotine Polacrilex (Nicotine Polacrilex Lozenge 2 Mg Lozenge) 2 mg BUCCAL Q2H PRN PRN Reason: Nicotine Cravings Last Admin: 12/11/23 22:29 Dose: 2 mg Nicotine Polacrilex (Nicotine Polacrilex 2 Mg Gum) 4 mg BUCCAL Q2H PRN PRN Reason: Nicotine Cravings Last Admin: 12/12/23 09:56 Dose: 4 mg Olanzapine (Olanzapine 10 Mg Tablet) 10 mg PO BEDTIME [facility] Last Admin: 12/11/23 21:30 Dose: 10 mg Risperidone (Risperidone 1 Mg Tablet) 1 mg PO DAILY PRN PRN Reason: moderate agitation Last Admin: 12/11/23 14:45 Dose: 1 mg Risperidone (Risperidone 2 Mg Tablet) 2 mg PO BEDTIME [facility] Last Admin: 12/11/23 21:29 Dose: 2 mg Trazodone HCl (Trazodone Hcl 50 Mg Tablet) 50 mg PO BEDTIME [facility] Last Admin: 12/11/23 22:26 Dose: 50 mg Zinc Acetate/Diphenhydramine (Diphenhydramine Hcl 2 % Cream 28 Gm Tube) 1 appl TOPICAL QID PRN; Protocol PRN Reason: Itching Last Admin: 12/12/23 12:21 Dose: 1 appl Allergies Allergies Allergy/AdvReac Type Severity Reaction Status Date / Time mite-Dermatophagoides Allergy Rash Verified 12/05/23 20:35 farinae, cecilio [dust mite - [place]] Assessment & Plan Assessment & Plan (1) Bipolar disorder, manic: Status: Acute Code(s): F31.10 - Bipolar disorder, current episode manic without psychotic features, unspecified Plan 12/06: DC morning dose of olanzapine 10 mg due to sedation, continue HS dose of 10 mg. continue lithium 600 BID and risperidone 1 BID for now. plan to consolidate risperidone at HS prior to discharge. lithium for 5 days, then check labs. refer for therapy and psychiatry. 12/07: continues mildly euphoric. plenty of energy this morning even with risperidone 1 mg in the a.m. wants to consolidate all risperidone at HS, however, which will be done as of this evening. 12/08: excessive energy again this morning. will continue current regimen and check labs after 5 days on lithium. 12/09: no change in presentation. feeling better, slightly euphoric. pleasant, cooperative. continue current mgmt. plannig for wednesday discharge. labs ordered for wednesday tom. 12/12/23- [facility] inc prn aterax to 50mg Patient educated on: medication risk/benefits Informed Consent: understands Reason for continued inpatient stay Substantial Risk for: rapid decompensation Time Spent With Patient Time: Total time managing care of this patient today ____ minutes.
[2023-12-12] MEDS: Amoxicillin/Potassium Clav 875 MG TABLET PO (14:01)
[2023-12-12] MEDS: hydrOXYzine HCL 50 MG TABLET PO ×2 (15:14→19:45)
[2023-12-12 20:15] VITALS: BP 134/70; PULSE 78; RESP 18; TEMP 37.2; O2SAT 97
[2023-12-12] MEDS: risperiDONE 2 MG TABLET PO (20:48)
[2023-12-12] MEDS: OLANZapine 10 MG TABLET PO (20:49)
--- NOTE | 2023-12-12 20:57 | PC.NURSE ---
Ray was given Atarax PO prn for his social anxiety
[2023-12-12] MEDS: traZODone HCL 50 MG TABLET PO (21:58)
[2023-12-13] MEDS: traZODone HCL 50 MG TABLET PO (01:56)
[2023-12-13] MEDS: Amoxicillin/Potassium Clav 875 MG TABLET PO (01:56)
--- NOTE | 2023-12-13 05:29 | PC.NURSE ---
Blane was given a second dose of trazodone PO prn at 0200 to help him fall back to sleep.
[2023-12-13 08:00] VITALS: BP 140/76; PULSE 80; RESP 16; TEMP 36.9; O2SAT 99
[2023-12-13] MEDS: Lithium Carbonate 300 MG CAPSULE 600 MG PO (08:29)
[2023-12-13] MEDS: Nicotine 21 MG PATCH.TD24 TRANSDERMA (08:30)
[2023-12-13] MEDS: hydrOXYzine HCL 50 MG TABLET PO (09:47)
[2023-12-13] MEDS: Nicotine Polacrilex 2 MG GUM 4 MG BUCCAL ×2 (09:47→11:21)
[2023-12-13] MEDS: diphenhydrAMINE HCl 2 % Cream 28 GM TUBE 1 APPL TOPICAL (09:49)
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
== END 2023-12-13 11:50 | disposition home or self-care (01) | DRG 753 ==
LOC: HO.ED 12-06 09:36 → HO.PADLT16 12-06 14:24
PROVIDERS: Admitting Provider Psychiatry & Neurology Psychiatry; Emergency Provider Emergency Medicine; Visit Provider Psychiatry & Neurology Psychiatry
DX: F31.10 Bipolar disorder, current episode manic without psychotic features, unspecified (principal); F17.210 Nicotine dependence, cigarettes, uncomplicated; H66.92 Otitis media, unspecified, left ear; Z71.6 Tobacco abuse counseling; Z20.822 Contact with and (suspected) exposure to COVID-19; Z79.899 Other long term (current) drug therapy
CPT/HCPCS: 36415; 80048; 80053; 80178; 80307; 81001; 85025; 87635; 93005; 99285; S9485

== ENCOUNTER → 2023-12-06 10:41 | Outpatient (BNV) | payer MEDICAID, SELFPAY | PROVIDERS: Admitting Provider Psychiatry & Neurology Psychiatry; Emergency Provider Emergency Medicine; Visit Provider Internal Medicine Cardiovascular Disease | DX: R45.851 Suicidal ideations (principal) | CPT/HCPCS: 93010 ==

== ENCOUNTER → 2023-12-06 14:17 | Outpatient (BNV) | payer OTHER, SELFPAY | PROVIDERS: Admitting Provider Psychiatry & Neurology Psychiatry; Emergency Provider Emergency Medicine; Visit Provider Psychiatry & Neurology Psychiatry | DX: F31.10 Bipolar disorder, current episode manic without psychotic features, unspecified (principal) | CPT/HCPCS: 99231; 99232; 99233 ==